=== PATIENT | female | born 1955 | race African-American/Black ===

== ENCOUNTER 2018-01-17 13:16 | Inpatient (IN) | payer MEDICAID, MEDICARE ==
[~2018-01-17] VITALS: Ht 162.6 cm; Wt 74.9 kg
[~2018-01-17 13:16] MED LIST: LEVO25TA7 PO; OMEP20CA10 PO
[2018-01-17] MEDS ORDERED: SODIUM CHLORIDE 0.9% 500 ML IV ONE (14:01)
[2018-01-17] MEDS ORDERED: ONDANSETRON HCL 4MG/2ML VIAL IV STA (14:01)
[2018-01-17] MEDS ORDERED: KETOROLAC 30MG/ML VIAL IV STA (14:01)
[2018-01-17] MEDS ORDERED: MORPHINE SULFATE 4 MG/ML CPJ (NOT FOR IM USE) IV STA (14:01)
[2018-01-17 14:36] LABS: BASOPHILS % 0.5 % (0.0-2.0); EOSINOPHILS % 3.5 % (0.0-5.0); HEMATOCRIT. 38.1 % (36.0-48.0); HEMOGLOBIN. 12.8 g/dL (12.0-16.0); LYMPHOCYTES % 25.9 % (20.0-50.0); MEAN CORPUSCULAR HEMOGLOBIN 28.4 pg (28.0-32.0); MEAN CORPUSCULAR VOLUME 84.7 fL (81.0-99.0); MEAN PLATELET VOLUME 8.7 fl (7.4-10.4); MONOCYTES % 5.9 % (2.0-8.0); NEUTROPHILS % 64.2 % (40.0-76.0); PLATELET 206 x1000/uL (130-400); RED CELL DISTRIBUTION WIDTH 13.9 % (11.6-14.6)
[2018-01-17 14:38] LABS: CHLORIDE 105 mEq/L (98-107)
[2018-01-17 14:41] LABS: D-DIMER 1.09 mg/L FEU (<0.50); PARTIAL THROMBOPLASTIN TIME 23.3 sec (23.4-31.0); PROTHROMBIN TIME 10.2 sec (9.4-11.6)
[2018-01-17 14:44] LABS: TROPONIN I < 0.02 ng/mL (0.00-0.04)
[2018-01-17 17:28] LABS: CLARITY URINE CLEAR (CLEAR); COLOR URINE YELLOW (YELLOW); KETONES URINE NEGATIVE (NEGATIVE); LEUKOCYTE ESTERASE URINE TRACE (NEGATIVE); NITRITE URINE NEGATIVE (NEGATIVE); OCCULT BLOOD URINE NEGATIVE (NEGATIVE); PROTEIN URINE NEGATIVE (NEGATIVE); SPECIFIC GRAVITY URINE 1.008 (1.005-1.030); UROBILINOGEN URINE 0.2 E.U./dL (0.2-1.0)
[2018-01-17] MEDS ORDERED: SODIUM CHLORIDE 0.9% 1,000 ML IV ONE ×2 (19:11→23:02)
[2018-01-17] MEDS ORDERED: ONDANSETRON HCL 4MG/2ML VIAL IV ONE (19:15)
[2018-01-17] MEDS ORDERED: IBUPROFEN 800MG TABLET PO ONE (21:00)
[2018-01-17] MEDS ORDERED: GUAIFENESIN 200MG/10ML SUGAR FREE UDC PO PRN (23:00)
[2018-01-17] MEDS ORDERED: CLONIDINE 0.1MG TABLET PO PRN (23:00)
[2018-01-17] MEDS ORDERED: DOCUSATE SODIUM 100MG CAPSULE PO PRN (23:00)
[2018-01-17] MEDS ORDERED: MAGNESIUM/ALUMINUM HYDROXIDE/SIMETHICONE 30ML UDC PO PRN (23:00)
[2018-01-17] MEDS ORDERED: DIPHENHYDRAMINE 50MG/ML VIAL IV PRN (23:00)
[2018-01-17] MEDS ORDERED: IPRATROPIUM/ALBUTEROL 0.5-3(2.5)MG/3ML NEB INH PRN (23:00)
[2018-01-17] MEDS ORDERED: MORPHINE SULFATE 4 MG/ML CPJ (NOT FOR IM USE) IV PRN (23:00)
[2018-01-17] MEDS ORDERED: HYDROCODONE/ACETAMINOPHEN 5/325MG TABLET PO PRN (23:00)
[2018-01-17] MEDS ORDERED: NA PHOS,M-B/NA PHOS,DI-BA ENEMA 118ML PR PRN (23:00)
[2018-01-17] MEDS ORDERED: ONDANSETRON HCL 4MG/2ML VIAL IV PRN (23:00)
[2018-01-17 23:58] LABS: CHLORIDE 110 mEq/L (98-107)
[2018-01-18 06:04] LABS: BASOPHILS % 0.3 % (0.0-2.0); EOSINOPHILS % 1.3 % (0.0-5.0); HEMATOCRIT. 37.2 % (36.0-48.0); HEMOGLOBIN. 11.9 g/dL (12.0-16.0); LYMPHOCYTES % 28.3 % (20.0-50.0); MEAN CORPUSCULAR VOLUME 87.5 fL (81.0-99.0); MEAN PLATELET VOLUME 8.6 fl (7.4-10.4); MONOCYTES % 6.9 % (2.0-8.0); NEUTROPHILS % 63.2 % (40.0-76.0); PLATELET 180 x1000/uL (130-400); RED BLOOD CELL COUNT 4.25 mill/uL (4.2-5.4); RED CELL DISTRIBUTION WIDTH 13.9 % (11.6-14.6)
[2018-01-18 06:09] LABS: CHLORIDE 113 mEq/L (98-107)
[2018-01-18 06:14] LABS: LDL CHOLESTEROL 91 mg/dL (5-100); TROPONIN I < 0.02 ng/mL (0.00-0.04)
[2018-01-18 06:15] LABS: HDL CHOLESTEROL 55 mg/dL (40-59); T4 FREE 0.76 ng/dL (0.76-1.46)
[2018-01-18] MEDS: ACETAMINOPHEN 325MG TABLET PO PRN ×3 (06:50→21:18)
[2018-01-18 08:00] VITALS: BP 118/60
[2018-01-18 08:30] VITALS: BP 118/60
[2018-01-18] MEDS ORDERED: SODIUM CHLORIDE 0.45% 1,000 ML IV SCH (10:35)
[2018-01-18] MEDS ORDERED: LORAZEPAM 0.5MG TABLET PO PRN (10:50)
[2018-01-18] MEDS ORDERED: INFLUENZA VIRUS VACCINE 0.5ML SYR IM ONE (11:00)
[2018-01-18 11:03] VITALS: BP 118/60
[2018-01-18 11:45] VITALS: BP 102/60
[2018-01-18] MEDS: ENOXAPARIN 40MG/0.4ML SYR SUBCUT SCH (12:49)
[2018-01-18 15:45] VITALS: BP 94/56
[2018-01-18 20:00] VITALS: BP 108/55
[2018-01-19] VITALS: BP 101/54
[2018-01-19 04:00] VITALS: BP 137/74
[2018-01-19] MEDS: ACETAMINOPHEN 325MG TABLET PO PRN ×3 (04:31→16:03)
[2018-01-19 08:00] VITALS: BP 98/59
[2018-01-19] MEDS: ENOXAPARIN 40MG/0.4ML SYR SUBCUT SCH (09:46)
[2018-01-19 12:00] VITALS: BP 117/77
[2018-01-19 16:00] VITALS: BP 109/74
[2018-01-19 17:17] VITALS: BP 109/74
== END 2018-01-19 17:50 | disposition home or self-care (01) | DRG 384 ==
LOC: ER 13:18 → 5WST 22:21
PROVIDERS: ADMIT Internal Medicine; ATTEND Internal Medicine
DX: S20.219A Contusion of unspecified front wall of thorax, initial encounter (principal); I10 Essential (primary) hypertension; E86.0 Dehydration; M19.012 Primary osteoarthritis, left shoulder; E05.90 Thyrotoxicosis, unspecified without thyrotoxic crisis or storm; S70.00XA Contusion of unspecified hip, initial encounter; Y92.410 Unspecified street and highway as the place of occurrence of the external cause; Z79.899 Other long term (current) drug therapy; V89.2XXA Person injured in unspecified motor-vehicle accident, traffic, initial encounter; Z88.8 Allergy status to other drugs, medicaments and biological substances; Z88.0 Allergy status to penicillin; R10.9 Unspecified abdominal pain
CPT/HCPCS: 36415; 71045; 71250; 72170; 74176; 80048; 80053; 80061; 81003; 83690; 83880; 84439; 84443; 84484; 85025; 85379; 85610; 85730; 90686; 93005; 96361; 96374; 96375; 96376; 99285; J1650; J1885; J2270; J2405; J7030; J7040